=== PATIENT | male | born 1985 | race Two or more races ===

== ENCOUNTER 2025-01-23 00:42 | Emergency (ER) | payer OTHER ==
[~2025-01-23] VITALS: Ht 154.9 cm; Wt 104.3 kg
[2025-01-23] MEDS ORDERED: TETRACAINE HCL 0.5% OPHT DROP 2 ML BOTTLE ONE (01:19)
[2025-01-23] MEDS ORDERED: FLUORESCEIN SODIUM 1 MG STRIP ONE (01:19)
[2025-01-23] MEDS: FLUORESCEIN SODIUM 1 MG STRIP OP ONE (01:42)
[2025-01-23] MEDS: TETRACAINE HCL 0.5% OPHT DROP 2 ML BOTTLE OP ONE (01:43)
[2025-01-23] MEDS ORDERED: ACETAMINOPHEN 500 MG TABLET ONE (02:14)
[2025-01-23] MEDS: ACETAMINOPHEN 500 MG TABLET PO ONE (02:15)
[2025-01-23 02:18] VITALS: BP 128/85; TEMP 97.9; O2SAT 100
== END 2025-01-23 02:18 | disposition home or self-care (01) ==
LOC: ER 00:50 → EDBD 00:50 → ER 02:18
DX: H57.8A2 Foreign body sensation, left eye (principal)
CPT/HCPCS: 99284; J7040; A4606; A4663; A9150